=== PATIENT | female | born 1940 | race Caucasian/White ===

== ENCOUNTER → 2023-07-13 10:50 | Outpatient (REF) | payer MEDICARE, OTHER, SELFPAY | LOC: HWRAD 10:50 | PROVIDERS: ATTENDING PHYSICIAN Family Medicine | DX: R19.7 Diarrhea, unspecified (principal); R11.0 Nausea; R63.4 Abnormal weight loss; R10.9 Unspecified abdominal pain | CPT/HCPCS: 74177; Q9967 ==

== ENCOUNTER → 2023-07-26 11:18 | Outpatient (REF) | payer MEDICARE, OTHER, SELFPAY | LOC: HWRAD 11:18 | PROVIDERS: ATTENDING PHYSICIAN Internal Medicine Rheumatology; FAMILY PHYSICIAN Family Medicine; REFERRING PHYSICIAN Internal Medicine Rheumatology | DX: M81.0 Age-related osteoporosis without current pathological fracture (principal); M54.50 Low back pain, unspecified | CPT/HCPCS: 72110; 77080 ==

== ENCOUNTER → 2023-12-21 09:38 | Outpatient (REF) | payer MEDICARE, OTHER, SELFPAY ==
[2023-12-21 12:17] LABS: % Basophils 0.8 % (0-2); % Eosinophils 4.2 % (0-6); % Immature Granulocytes 0.2 % (0-0.5); % Lymphocytes 31.7 % (20.5-51.1); % Monocytes 6.8 % (1.7-9.3); % Neutrophils 56.3 % (42.2-75.2); Absolute Basophils 0.1 10^3/uL (0-0.2); Absolute Eosinophils 0.4 10^3/uL (0-0.7); Absolute Lymphocytes 2.7 10^3/uL (1.2-3.4); Absolute Monocytes 0.6 10^3/uL (0.1-0.6); Absolute Neutrophils 4.9 10^3/uL (1.4-6.5); Hematocrit 36.7 % (37.0-47.0); Hemoglobin 12.3 g/dL (12.0-16.0); Mean Corp Hgb Conc. 33.5 g/dL (33.0-37.0); Mean Corpuscular Hgb 32.4 pg (27.0-31.0); Mean Corpuscular Volume 96.6 fL (81.0-99.0); Mean Platelet Volume 10.6 fL (7.4-10.4); Nucleated Red Blood Cells % 0 %; Platelet Count 350 10^3/uL (130-400); White Blood Cell Count 8.6 10^3/uL (4.8-10.8)
[2023-12-21 13:21] LABS: Erythrocyte Sed Rate 45 mm/hour (0-20)
[2023-12-21 14:15] LABS: C-Reactive Protein < 5.00 mg/L (0.0-10.00)
[2023-12-21 14:46] LABS: TSH Reflex To Free T4 4.76 uIU/ml (0.47-4.68)
[2023-12-21 14:50] LABS: ALT (SGPT) 19 U/L (0-35); AST (SGOT) 33 U/L (14-36); Albumin 4.2 g/dl (3.5-5.0); Alkaline Phosphatase 75 U/L (38-126); Blood Urea Nitrogen 17 mg/dl (7-17); Calcium 9.2 mg/dl (8.4-10.2); Carbon Dioxide 26 mmol/L (22-30); Chloride 106 mmol/L (98-107); Glucose 106 mg/dl (70-99); Sodium 140 mmol/L (135-145); Total Bilirubin 0.5 mg/dl (0.2-1.3); Total Protein 7.3 g/dl (6.3-8.2); eGFR > 60.00
[2023-12-21 15:16] LABS: Free T4 1.02 ng/dl (0.78-2.19)
[2023-12-22 12:28] LABS: tTG IgA Antibody 11.6 EU/ml (0-19); tTG IgG Antibody 29.3 EU/ml (0-19)
[2023-12-23 00:11] LABS: IgA 306 mg/dl (70-400)
== END ==
LOC: HWLAB 09:38
PROVIDERS: ATTENDING PHYSICIAN Internal Medicine Rheumatology; FAMILY PHYSICIAN Family Medicine; REFERRING PHYSICIAN Internal Medicine Gastroenterology
DX: L29.9 Pruritus, unspecified (principal); M06.89 Other specified rheumatoid arthritis, multiple sites; M17.12 Unilateral primary osteoarthritis, left knee; M81.0 Age-related osteoporosis without current pathological fracture; Z51.81 Encounter for therapeutic drug level monitoring; R19.7 Diarrhea, unspecified; R10.12 Left upper quadrant pain
CPT/HCPCS: 36415; 80053; 82784; 83516; 84439; 84443; 85025; 85652; 86140

== ENCOUNTER → 2023-12-22 15:34 | Outpatient (REF) | payer MEDICARE, OTHER, SELFPAY ==
[2023-12-25 16:34] LABS: Calprotectin, Fecal 473 ug/g (<=49)
== END ==
LOC: REG 15:34
PROVIDERS: ATTENDING PHYSICIAN Internal Medicine Gastroenterology; FAMILY PHYSICIAN Family Medicine
DX: R19.7 Diarrhea, unspecified (principal); R10.12 Left upper quadrant pain
CPT/HCPCS: 83013; 83993; 87328; 87329

== ENCOUNTER → 2024-01-05 06:29 | Day surgery (SDC) | payer MEDICARE, OTHER, SELFPAY | LOC: GI 06:29 | PROVIDERS: ATTENDING PHYSICIAN Internal Medicine Gastroenterology | DX: R10.84 Generalized abdominal pain (principal); R63.4 Abnormal weight loss; K22.2 Esophageal obstruction; K44.9 Diaphragmatic hernia without obstruction or gangrene; K31.7 Polyp of stomach and duodenum; K31.89 Other diseases of stomach and duodenum | CPT/HCPCS: 43239; 88305; 88342 ==

== ENCOUNTER → 2024-01-25 12:33 | Outpatient (REF) | payer MEDICARE, OTHER, SELFPAY ==
[2024-01-25 15:57] LABS: % Basophils 0.8 % (0-2); % Eosinophils 3.1 % (0-6); % Immature Granulocytes 0.3 % (0-0.5); % Lymphocytes 31.6 % (20.5-51.1); % Monocytes 8.3 % (1.7-9.3); % Neutrophils 55.9 % (42.2-75.2); Absolute Basophils 0.1 10^3/uL (0-0.2); Absolute Eosinophils 0.3 10^3/uL (0-0.7); Absolute Lymphocytes 2.5 10^3/uL (1.2-3.4); Absolute Monocytes 0.7 10^3/uL (0.1-0.6); Absolute Neutrophils 4.5 10^3/uL (1.4-6.5); Hematocrit 35.8 % (37.0-47.0); Hemoglobin 11.8 g/dL (12.0-16.0); Mean Corpuscular Hgb 30.7 pg (27.0-31.0); Mean Corpuscular Volume 93.2 fL (81.0-99.0); Mean Platelet Volume 10.3 fL (7.4-10.4); Nucleated Red Blood Cells % 0 %; Platelet Count 354 10^3/uL (130-400); Red Blood Cell Count 3.84 10^6/uL (4.20-5.40); Red Cell Dist. Width 13.6 % (11.5-14.5)
[2024-01-25 16:00] LABS: ALT (SGPT) 16 U/L (0-35); AST (SGOT) 28 U/L (14-36); Alkaline Phosphatase 66 U/L (38-126); Blood Urea Nitrogen 23 mg/dl (7-17); Calcium 9.4 mg/dl (8.4-10.2); Carbon Dioxide 23 mmol/L (22-30); Chloride 108 mmol/L (98-107); Glucose 115 mg/dl (70-99); Sodium 145 mmol/L (135-145); Total Bilirubin 0.3 mg/dl (0.2-1.3); Total Protein 7.1 g/dl (6.3-8.2); eGFR > 60.00
[2024-01-25 16:29] LABS: TSH Reflex To Free T4 3.87 uIU/ml (0.47-4.68)
== END ==
LOC: HWLAB 12:33
PROVIDERS: ATTENDING PHYSICIAN Family Medicine
DX: F41.1 Generalized anxiety disorder (principal); I10 Essential (primary) hypertension; E78.5 Hyperlipidemia, unspecified
CPT/HCPCS: 36415; 80053; 84443; 85025

== ENCOUNTER 2024-04-13 16:20 | Emergency (ER) | payer MEDICARE, OTHER, SELFPAY ==
[2024-04-13 16:22] VITALS: BP 162/91
--- NOTE | 2024-04-13 17:13 | ED.GENMED ---
History of Present Illness
General
Chief Complaint: Musculo-Skeletal Complaint
Source: patient
Exam Limitations: none
Time Seen by Provider: 04/13/24 16:25
Nursing documentation reviewed up to this point in time: agreed with
History of Present Illness
History of Present Illness:
Hit leg on door. Sustained skin tear to LLE. Injury occurred just [employer]
Past History
Past History
ED Past Medical History: Arrthythmia (Atrial tachycardia), HTN, Hypercholesterolemia and Other (RA, fibromyalgia, chronic sinusitis)
ED Past Surgical History: Cholecystectomy, Gynecological and Orthopedic
Patient has exhibited threatening behavior?: No
PSI?: No
Social History
Tobacco: Non-smoker
Personal:
Review of Systems
Review of Systems
Allergies reviewed?: Yes
All Other Systems: ROS reviewed and negative except as documented in HPI and ROS
Constitutional: Reports no symptoms
Musculoskeletal: Reports no symptoms
Skin: Reports other (Large skin tear LLE)
Neurological: Reports no symptoms
Psychiatric: Reports no symptoms
Phy Exam
General Physical Exam
General Presentation: well appearing and no apparent distress
General age: appears stated age
General Skin: warm and dry
General Habitus: normal
General Mental: alert
Musculoskeletal Exam
Musculoskeletal Exam: full ROM and neuro vasc intact
Skin Exam
Skin Exam: normal color, warm/dry and no rash
Psychiatric Exam
Psychiatric Exam: normal mood/affect
Course
Vital Signs
Initial and Last Documented VS:
Initial Vital Signs
Temp Pulse Resp BP Pulse Ox
98.2 F 88 16 162/91 98
04/13/24 16:22 04/13/24 16:22 04/13/24 16:22 04/13/24 16:22 04/13/24 16:22
Last Documented Vital Signs
Temp Pulse Resp BP Pulse Ox
98.2 F 88 16 162/91 98
04/13/24 16:22 04/13/24 16:22 04/13/24 16:22 04/13/24 16:22 04/13/24 16:22
Procedures
Laceration Closure
Left Lower Anterior Leg:
Status of Wound: clean
Description of Wound Edges: sharp
Preparation: cleaned with saline and cleaned with Betadine
Anesthesia: 1% Lidocaine with epi
Revision/Debridement: routine- no revision
Wound exploration: explored to base- no FB
Type of Closure: single layer closure
Skin Closure Material: 4-0 prolene
*Critical Care Note
Total Time (30-74mins, 75-104mins- exclusive of procedures): Not Applicable
ED Attending Note
-
Portions of this chart may have been created with voice recognition software.� Occasional wrong word or��sound alike� substitutions may have occurred due to the inherent limitations of voice recognition software.
Discharge Plan
Departure
Patient Disposition: Home (Routine Discharge)
Date of Disposition: 04/13/24
Time of Disposition: 17:05
Patient with high blood pressure during this ER visit?: No
Condition: Good
Covid-19: Not Applicable
Discharge Problem:
Skin tear of lower leg without complication
Instructions: Laceration Repair With Stitches ED
Prescriptions:
New
amoxicillin 500 mg capsule
500 mg PO BID Qty: 14 0RF
No Action
multivitamin 1 EACH tablet
1 ea PO DAILY
infliximab [Remicade] 100 MG/10 ML recon soln
1 unit IV Q4W
cholestyramine (with sugar) 4 GM powder in packet
4 gm PO DAILY PRN (Reason: diarrhea)
Eliquis 5 MG tablet
5 mg PO BID Qty: 60 5RF
pantoprazole 20 mg tablet,delayed release (DR/EC)
20 mg PO DAILY
calcium polycarbophil [FiberCon] 625 mg Tablet
1,250 mg PO DAILY
Prevagan
1 cap PO DAILY
simvastatin [Zocor] 20 mg tablet
20 mg PO HS Qty: 30 0RF
clonazepam 0.5 MG tablet
0.5 mg PO BID Qty: 2 0RF
dofetilide 250 mcg Capsule
250 mcg PO Q12 Qty: 60 2RF
diltiazem HCl 240 mg Capsule,Extended Release 24hr
240 mg PO DAILY Qty: 30 0RF
metoprolol succinate 25 mg Tablet Extended Release 24 Hr
25 mg PO Q12H Qty: 60 0RF
losartan 50 mg tablet
50 mg PO DAILY Qty: 30 0RF
Referrals:
Sonu Boswell MD [Family Provider] - (Sutures can be removed in 7-10 days)
Interventions
Interventions:
*Risk Screen - Suicide Last Done: 04/13/24 16:22
*Neglect/Abuse Screening Last Done: 04/13/24 16:22
Discharge Date and Time
Print Language: CZECH
Skin Exam
Laceration
Left Lower Anterior Leg:
Length in cm: 6
Orientation: vertical
Type of Laceration: simple
Any active bleeding?: no active bleeding
Distal skin color and temperature: normal-warm & good color
Normal distal neurovascular exam: Yes
Range of motion: full
== END 2024-04-13 17:40 | disposition home or self-care (01) ==
LOC: EMR 16:20
PROVIDERS: EMERGENCY PHYSICIAN Emergency Medicine; FAMILY PHYSICIAN Family Medicine
DX: S81.819A Laceration without foreign body, unspecified lower leg, initial encounter (principal); W22.09XA Striking against other stationary object, initial encounter; I10 Essential (primary) hypertension
CPT/HCPCS: 99282; 12002

== ENCOUNTER 2024-04-18 17:15 | Emergency (ER) | payer MEDICARE, OTHER, SELFPAY ==
[2024-04-18 17:17] VITALS: BP 161/81
[2024-04-18 17:36] LABS: % Basophils 0.4 % (0-2); % Eosinophils 0.8 % (0-6); % Immature Granulocytes 0.3 % (0-0.5); % Lymphocytes 25.3 % (20.5-51.1); % Monocytes 7.7 % (1.7-9.3); % Neutrophils 65.5 % (42.2-75.2); Absolute Basophils 0.1 10^3/uL (0-0.2); Absolute Eosinophils 0.1 10^3/uL (0-0.7); Absolute Monocytes 0.9 10^3/uL (0.1-0.6); Absolute Neutrophils 7.7 10^3/uL (1.4-6.5); Hematocrit 35.9 % (37.0-47.0); Hemoglobin 11.8 g/dL (12.0-16.0); Mean Corp Hgb Conc. 32.9 g/dL (33.0-37.0); Mean Corpuscular Hgb 31.6 pg (27.0-31.0); Mean Platelet Volume 9.4 fL (7.4-10.4); Nucleated Red Blood Cells % 0 %; Platelet Count 373 10^3/uL (130-400); Red Blood Cell Count 3.74 10^6/uL (4.20-5.40); Red Cell Dist. Width 14.7 % (11.5-14.5); White Blood Cell Count 11.7 10^3/uL (4.8-10.8)
[2024-04-18 17:52] LABS: ALT (SGPT) 17 U/L (0-35); AST (SGOT) 25 U/L (14-36); Alkaline Phosphatase 78 U/L (38-126); Blood Urea Nitrogen 27 mg/dl (7-17); Carbon Dioxide 28 mmol/L (22-30); Chloride 104 mmol/L (98-107); Glucose 125 mg/dl (70-99); Potassium 3.8 mmol/L (3.5-5.1); Sodium 143 mmol/L (135-145); Total Bilirubin 0.8 mg/dl (0.2-1.3); Total Protein 7.2 g/dl (6.3-8.2); eGFR > 60.00
--- NOTE | 2024-04-18 21:03 | ED.GENMED ---
History of Present Illness
General
Chief Complaint: Musculo-Skeletal Complaint
Source: patient
Exam Limitations: none
Time Seen by Provider: 04/18/24 19:56
Nursing documentation reviewed up to this point in time: agreed with
History of Present Illness
History of Present Illness:
Patient is an 84-year-old female who presents to the ER complaint of left lower leg pain. Patient reports on 5 days ago she hit her lower leg on a storm door and had a laceration. She came here had sutures placed but since then has had
increasing pain and bruising and swelling. She has pain with ambulation. She is on Eliquis for A-fib and therefore has been only taking Tylenol.
She was concerned about a fracture since she did not have an x-ray at the time.
She reports he does have Steri-Strips in place and denies any yellow drainage or drainage from the incision. Denies any fever chills
Past History
Past History
ED Past Medical History: Arrthythmia (Atrial tachycardia), HTN, Hypercholesterolemia and Other (RA, fibromyalgia, chronic sinusitis)
ED Past Surgical History: Cholecystectomy, Gynecological and Orthopedic
Patient has exhibited threatening behavior?: No
PSI?: No
Social History
Tobacco: Non-smoker
Personal:
Review of Systems
Review of Systems
Allergies reviewed?: Yes
All Other Systems: ROS reviewed and negative except as documented in HPI and ROS
Constitutional: Reports no symptoms; Denies fever, fatigue or chills
Musculoskeletal: Reports other (Swelling bruising and discomfort to left lower leg)
Skin: Reports no symptoms
Neurological: Reports no symptoms
Psychiatric: Reports no symptoms
Phy Exam
General Physical Exam
General Presentation: no apparent distress
General age: appears stated age
General Skin: warm and dry
General Habitus: normal
General Mental: alert
General Hydration: appears well hydrated
Neurological Exam
Neurological Exam: alert and oriented x3
Musculoskeletal Exam
Musculoskeletal Exam: other (Left lower leg with Steri-Strips in place surrounding ecchymosis and small hematomas but no surrounding erythema or drainage strong distal pulses normal distal sensation, compartment is soft )
Skin Exam
Skin Exam: normal color and warm/dry
Psychiatric Exam
Psychiatric Exam: normal mood/affect
Course
Orders/Labs/Results
Orders:
Orders
04/18/24 17:22
CR Ankle - Left Min 3 Views Urgent
Comment:
Reason For Exam: injury
CR Leg Tibia/fibula Left 2 Vw Urgent
Comment:
Reason For Exam: injury
04/18/24 17:27
Complete Blood Count/With Diff Urgent
Comprehensive Metabolic Panel Urgent
04/18/24 21:03
Venous Doppler Lwr Ext Left [US Periph Venous LOWER Ext LT] Urgent
Comment:
Reason For Exam: pain s/p trauma on eliquis
Abnormal Lab Results
04/18/24
17:27
WBC 11.7 H 10^3/uL
(4.8-10.8)
RBC 3.74 L 10^6/uL
(4.20-5.40)
Hgb 11.8 L g/dL
(12.0-16.0)
Hct 35.9 L %
(37.0-47.0)
MCH 31.6 H pg
(27.0-31.0)
MCHC 32.9 L g/dL
(33.0-37.0)
RDW 14.7 H %
(11.5-14.5)
Absolute Neuts (auto) 7.7 H 10^3/uL
(1.4-6.5)
Absolute Monos (auto) 0.9 H 10^3/uL
(0.1-0.6)
BUN 27 H mg/dl
(7-17)
Glucose 125 H mg/dl
(70-99)
04/18/24 17:27
04/18/24 17:27
Vital Signs
Initial and Last Documented VS:
Initial Vital Signs
Temp Pulse Resp BP Pulse Ox
97.9 F 107 19 161/81 96
04/18/24 17:17 04/18/24 17:17 04/18/24 17:17 04/18/24 17:17 04/18/24 17:17
Last Documented Vital Signs
Temp Pulse Resp BP Pulse Ox
97.9 F 107 19 161/81 96
04/18/24 17:17 04/18/24 17:17 04/18/24 17:17 04/18/24 17:17 04/18/24 17:17
MDM/Problems Addressed
Differential Diagnosis Includes:
Not limited to hematoma, less likely DVT
MDM/Problems Addressed:
Patient had a traumatic injury several days ago was seen here had wound sutured but does have ecchymosis and swelling to the area with complaints of discomfort. She is on Eliquis on exam there are scattered ecchymosis no evidence infection these
are likely contusions/hematomas from trauma we will ultrasound however will plan to discharge home with elevation patient may try heat as she has been trying ice with close outpatient follow-up. No symptoms or exam consistent with compartment
syndrome.
HGB stable BUN slightly elevated will have pt increase fluids .
Will give patient gentle light Norbert wrap for during the day but instructed patient to remove at night while sleeping discussed close outpatient follow-up with family doctor next 2 days and to return if any worsening of symptoms.
Chronic conditions affecting care:
On Eliquis for A-fib
*Critical Care Note
Total Time (30-74mins, 75-104mins- exclusive of procedures): Not Applicable
ED Attending Note
-
Portions of this chart may have been created with voice recognition software.� Occasional wrong word or��sound alike� substitutions may have occurred due to the inherent limitations of voice recognition software.
Discharge Plan
Departure
Patient Disposition: Home (Routine Discharge)
Date of Disposition: 04/18/24
Time of Disposition: 22:17
Patient with high blood pressure during this ER visit?: Yes
Covid-19: Not Applicable
Discharge Problem:
Contusion, Hematoma
Instructions: Contusion (DC), Hematoma
Prescriptions:
No Action
multivitamin 1 EACH tablet
1 ea PO DAILY
infliximab [Remicade] 100 MG/10 ML recon soln
1 unit IV Q4W
cholestyramine (with sugar) 4 GM powder in packet
4 gm PO DAILY PRN (Reason: diarrhea)
Eliquis 5 MG tablet
5 mg PO BID Qty: 60 5RF
pantoprazole 20 mg tablet,delayed release (DR/EC)
20 mg PO DAILY
calcium polycarbophil [FiberCon] 625 mg Tablet
1,250 mg PO DAILY
Prevagan
1 cap PO DAILY
simvastatin [Zocor] 20 mg tablet
20 mg PO HS Qty: 30 0RF
clonazepam 0.5 MG tablet
0.5 mg PO BID Qty: 2 0RF
dofetilide 250 mcg Capsule
250 mcg PO Q12 Qty: 60 2RF
diltiazem HCl 240 mg Capsule,Extended Release 24hr
240 mg PO DAILY Qty: 30 0RF
metoprolol succinate 25 mg Tablet Extended Release 24 Hr
25 mg PO Q12H Qty: 60 0RF
losartan 50 mg tablet
50 mg PO DAILY Qty: 30 0RF
amoxicillin 500 mg capsule
500 mg PO BID Qty: 14 0RF
Referrals:
Reta Toledo MD [Family Provider] -
Activity Restrictions/Additional Instructions:
As discussed keep elevated as much as possible you may try warm moist heat to affected area.
You may wear Norbert wrap for support of the day gently wrap do not pull tightly. Do not sleep with Norbert wrap!!!
Your labs show that you are mildly dehydrated please increase fluid intake.
Follow-up with your family doctor in the next of days for reevaluation return if any worsening of symptoms of increasing pain numbness tingling toes or any further concerns.
Interventions
Interventions:
*Risk Screen - Suicide Last Done: 04/18/24 17:20
*Neglect/Abuse Screening Last Done: 04/18/24 17:20
Discharge Date and Time
Print Language: THAI
[2024-04-18] MEDS: TYLENOL 650 MG PO (22:28)
== END 2024-04-18 22:34 | disposition home or self-care (01) ==
LOC: EMR 17:15
PROVIDERS: Emergency Medicine; EMERGENCY PHYSICIAN Emergency Medicine; FAMILY PHYSICIAN Family Medicine
DX: S80.12XA Contusion of left lower leg, initial encounter (principal); X58.XXXA Exposure to other specified factors, initial encounter; M79.662 Pain in left lower leg; R22.42 Localized swelling, mass and lump, left lower limb; I48.91 Unspecified atrial fibrillation; I10 Essential (primary) hypertension; M79.7 Fibromyalgia; E78.00 Pure hypercholesterolemia, unspecified; Z79.01 Long term (current) use of anticoagulants; Z90.49 Acquired absence of other specified parts of digestive tract; M06.9 Rheumatoid arthritis, unspecified
CPT/HCPCS: 99283; 73590; 73610; 80053; 85025; 93971

== ENCOUNTER → 2024-06-29 10:08 | Outpatient (REF) | payer MEDICARE, OTHER, SELFPAY ==
[2024-06-29 12:58] LABS: % Basophils 0.9 % (0-2); % Eosinophils 1.8 % (0-6); % Immature Granulocytes 0.3 % (0-0.5); % Lymphocytes 30.5 % (20.5-51.1); % Monocytes 7.4 % (1.7-9.3); % Neutrophils 59.1 % (42.2-75.2); Absolute Basophils 0.1 10^3/uL (0-0.2); Absolute Eosinophils 0.1 10^3/uL (0-0.7); Absolute Lymphocytes 2.4 10^3/uL (1.2-3.4); Absolute Monocytes 0.6 10^3/uL (0.1-0.6); Absolute Neutrophils 4.6 10^3/uL (1.4-6.5); Hematocrit 39.4 % (37.0-47.0); Hemoglobin 12.6 g/dL (12.0-16.0); Mean Corpuscular Hgb 31.3 pg (27.0-31.0); Nucleated Red Blood Cells % 0 %; Platelet Count 358 10^3/uL (130-400); Red Blood Cell Count 4.02 10^6/uL (4.20-5.40); White Blood Cell Count 7.8 10^3/uL (4.8-10.8)
[2024-06-29 13:17] LABS: ALT (SGPT) 17 U/L (0-35); AST (SGOT) 26 U/L (14-36); Albumin 4.3 g/dl (3.5-5.0); Alkaline Phosphatase 66 U/L (38-126); Blood Urea Nitrogen 20 mg/dl (7-17); Calcium 9.3 mg/dl (8.4-10.2); Carbon Dioxide 28 mmol/L (22-30); Chloride 104 mmol/L (98-107); Glucose 98 mg/dl (70-99); HDL Cholesterol 73 mg/dl; LDL Cholesterol, Calculated 92 mg/dl; Sodium 141 mmol/L (135-145); Total Bilirubin 0.6 mg/dl (0.2-1.3); Total Cholesterol 194 mg/dl (50-199); Total Protein 7.3 g/dl (6.3-8.2); Triglyceride 147 mg/dl (10-149); Very Low Density Lipoprotein 29 mg/dl (0-30); eGFR > 60.00
[2024-06-29 15:12] LABS: C-Reactive Protein < 5.00 mg/L (0.0-10.00)
[2024-06-29 15:44] LABS: TSH Reflex To Free T4 3.24 uIU/ml (0.47-4.68)
[2024-06-29 15:47] LABS: Erythrocyte Sed Rate 38 mm/hour (0-20)
[2024-06-29 16:03] LABS: Vitamin B12 566 pg/ml (239-931)
[2024-06-30 12:45] LABS: Glycohemoglobin (HgbA1c) 5.4 % (4.0-5.6)
== END ==
LOC: HWLAB 10:08
PROVIDERS: ATTENDING PHYSICIAN Internal Medicine Rheumatology; FAMILY PHYSICIAN Family Medicine
DX: I70.0 Atherosclerosis of aorta (principal); Z79.899 Other long term (current) drug therapy; R79.9 Abnormal finding of blood chemistry, unspecified; Z01.89 Encounter for other specified special examinations
CPT/HCPCS: 36415; 80053; 80061; 82607; 83036; 84443; 85025; 85652; 86140

== ENCOUNTER 2024-06-30 12:58 | Emergency (ER) | payer MEDICARE, OTHER, SELFPAY ==
[2024-06-30 13:05] VITALS: BP 166/102
[2024-06-30 13:51] LABS: ALT (SGPT) 17 U/L (0-35); AST (SGOT) 25 U/L (14-36); Alkaline Phosphatase 67 U/L (38-126); Blood Urea Nitrogen 20 mg/dl (7-17); Calcium 9.1 mg/dl (8.4-10.2); Carbon Dioxide 28 mmol/L (22-30); Chloride 106 mmol/L (98-107); Glucose 100 mg/dl (70-99); Sodium 140 mmol/L (135-145); Total Bilirubin 0.4 mg/dl (0.2-1.3); Total Protein 7.1 g/dl (6.3-8.2); eGFR > 60.00
[2024-06-30 13:57] LABS: COVID-19 Antigen Negative (Negative)
[2024-06-30 14:00] VITALS: BP 146/75
[2024-06-30 14:07] VITALS: BMI 26.8
--- NOTE | 2024-06-30 14:54 | ED.GENMED ---
History of Present Illness
General
Chief Complaint: Dizziness
Source: patient
Exam Limitations: none
Time Seen by Provider: 06/30/24 13:39
Nursing documentation reviewed up to this point in time: agreed with
History of Present Illness
History of Present Illness:
Patient is a pleasant 84-year-old female who reports that when she woke up this morning she felt a sense of dizziness, as if the room is spinning. Patient reports that while waiting in the ED, the symptoms have gone away. Patient reports recent
nasal congestion, mild frontal headache, and a sense of fullness of her left ear. Patient reports she has had left ear issues for a long time. Patient denies lightheadedness, chest pain and shortness of breath. She denies vision changes and
states she feels well.
Past History
Past History
ED Past Medical History: Arrthythmia (Atrial tachycardia), HTN, Hypercholesterolemia and Other (RA, fibromyalgia, chronic sinusitis)
ED Past Surgical History: Cholecystectomy, Gynecological and Orthopedic
Patient has exhibited threatening behavior?: No
PSI?: No
Social History
Tobacco: Non-smoker
Alcohol: Other
Drug: None
Personal:
Living: with family
Employment: Other
Family History
Family History: Other
Review of Systems
Review of Systems
Allergies reviewed?: Yes
All Other Systems: ROS reviewed and negative except as documented in HPI and ROS
Constitutional: Reports no symptoms
EENT: Reports other (Nasal congestion, left ear feels stuffed and sometimes 'hears crackles from left ear')
Respiratory: Reports no symptoms
Cardiac: Reports no symptoms
ABD/GI: Reports no symptoms
: Reports no symptoms
Musculoskeletal: Reports no symptoms
Skin: Reports no symptoms
Neurological: Reports dizzy
Endocrine: Reports no symptoms
Hematologic/Lymphatic: Reports no symptoms
Psychiatric: Reports no symptoms
Phy Exam
Physical Exam
Physical Exam:
Physical Exam
General: no apparent distress, not acutely ill. Well appearing, conversational and smiling
Neck: supple. no meningeal signs. normal psoterior pharynx. Large amount of wax left ear
Heart: s1/s2 regular rate and rhythm, no murmur. equal radial pulses.
Lungs: no acute respiratory distress. clear bilaterally
Abdomen: normal bowel sounds. not tender. no CVAT
Neuro: alert and oriented. no focal neurological deficits. Steady gait. Normal [id number]. Extraocular muscles intact. Visual [place] intact
Skin: no rash
Psychiatric: well kept. interactive and cooperative
Extremities: no edema. no calf tenderness. negative homans. good distal pulses
Course
Orders/Labs/Results
Orders:
Orders
06/30/24 13:04
Electrocardiogram (*1) Urgent
Reason for Study: Vertigo / Dizzy
EKG- Treatment ONCE
06/30/24 13:19
Complete Blood Count/With Diff Urgent
Comprehensive Metabolic Panel Urgent
06/30/24 13:20
COVID-19 Antigen Urgent
Source: Nasal Swab
Influenza A+B Rapid Molecular Urgent
VIRIDIANA Source: Nasal Swab
Specimen Description:
Abnormal Lab Results
06/30/24
13:19
BUN 20 H mg/dl
(7-17)
Glucose 100 H mg/dl
(70-99)
06/30/24 13:19
Vital Signs
Initial and Last Documented VS:
Initial Vital Signs
Temp Pulse Resp BP Pulse Ox
98.6 F 84 16 166/102 97
06/30/24 13:05 06/30/24 13:05 06/30/24 13:05 06/30/24 13:05 06/30/24 13:05
Last Documented Vital Signs
Temp Pulse Resp BP Pulse Ox
98.6 F 70 17 146/75 96
06/30/24 13:05 06/30/24 14:00 06/30/24 14:00 06/30/24 14:00 06/30/24 13:45
MDM/Problems Addressed
Differential Diagnosis Includes:
Acute positional vertigo, acute dehydration, cardiac arrhythmia
MDM/Problems Addressed:
Patient presents with acute vertigo which is now gone
Chronic conditions affecting care: HTN
Acute Exacerbation and/or Progression of Chronic Illness:
Patient is acutely hypertensive, however, on rechecking her blood pressure is improved
Acute Exacerbation and/or Progression of Chronic Illness: HTN
*Pulse Oximetry
Patient hypoxic: no
*EKG
Interpreted by ED Provider?: Yes
Interpretation: abnormal
Comparison EKG: changes noted
Rate: normal
Rhythm: other (Atrial paced)
Lagrange: normal axis
Interval: normal interval
QRS Pattern: normal QRS
Ischemia: no ischemia
*Knowledge Management Advisor Interpretation
Rate: normal
Interpretation: normal
Rhythm: other
*Critical Care Note
Total Time (30-74mins, 75-104mins- exclusive of procedures): Not Applicable
Data Reviewed
Review of Other/Old Records Reveals: Testing (Normal-appearing cardiac echo 2022)
Source: patient
Further Testing Considered But Not Given:
Consider doing a CAT scan of the head, however, given patient symptoms are completely gone and she is a normal neurological exam, I do not feel the CT is warranted. I am not suspicious for stroke.
ED Attending Note
-
Portions of this chart may have been created with voice recognition software.� Occasional wrong word or��sound alike� substitutions may have occurred due to the inherent limitations of voice recognition software.
Discharge Plan
Departure
Patient Disposition: Home (Routine Discharge)
Date of Disposition: 06/30/24
Time of Disposition: 14:48
Patient with high blood pressure during this ER visit?: Yes
Condition: Good
Covid-19: Not Applicable
Discharge Problem:
Vertigo, Excessive wax in left ear
Instructions: Vertigo (a type of dizziness), Carbamide Peroxide, Ear Wax Impaction ED, BLOOD PRESSURE
Prescriptions:
No Action
multivitamin 1 EACH tablet
1 ea PO DAILY
infliximab [Remicade] 100 MG/10 ML recon soln
1 unit IV Q4W
cholestyramine (with sugar) 4 GM powder in packet
4 gm PO DAILY PRN (Reason: diarrhea)
Eliquis 5 MG tablet
5 mg PO BID Qty: 60 5RF
pantoprazole 20 mg tablet,delayed release (DR/EC)
20 mg PO DAILY
calcium polycarbophil [FiberCon] 625 mg Tablet
1,250 mg PO DAILY
Prevagan
1 cap PO DAILY
simvastatin [Zocor] 20 mg tablet
20 mg PO HS Qty: 30 0RF
clonazepam 0.5 MG tablet
0.5 mg PO BID Qty: 2 0RF
dofetilide 250 mcg Capsule
250 mcg PO Q12 Qty: 60 2RF
diltiazem HCl 240 mg Capsule,Extended Release 24hr
240 mg PO DAILY Qty: 30 0RF
metoprolol succinate 25 mg Tablet Extended Release 24 Hr
25 mg PO Q12H Qty: 60 0RF
losartan 50 mg tablet
50 mg PO DAILY Qty: 30 0RF
amoxicillin 500 mg capsule
500 mg PO BID Qty: 14 0RF
Referrals:
Sakshi Hunter MD [Family Provider] -
Kaylee Green MD [Active] - (Call for next open appointment)
Activity Restrictions/Additional Instructions:
Please buy an ear drop medication for ear wax called Debrox. It is sold [id number]. Apply 5 to 10 drops of Debrox into your left ear twice a day for 4 days. After applying the eardrops, put a cotton ball in the left ear.
Please also use Afrin nasal spray for any congestion. This is also sold [id number]
Interventions
Interventions:
*Risk Screen - Suicide Last Done: 06/30/24 13:05
*General Assessment Last Done: 06/30/24 13:05
*Neglect/Abuse Screening Last Done: 06/30/24 13:05
ED- Fall Risk Assessment Last Done: 06/30/24 14:12
*ED COVID-19 Vaccine History Last Done: 06/30/24 14:07
ED- Neurological Assessment Last Done: 06/30/24 14:11
ED- Cardiac Assessment Last Done: 06/30/24 14:12
Discharge Date and Time
Print Language: CITIZ[place]
== END 2024-06-30 14:59 | disposition home or self-care (01) ==
LOC: EMR 12:58
PROVIDERS: EMERGENCY PHYSICIAN Emergency Medicine; FAMILY PHYSICIAN Family Medicine
DX: R42 Dizziness and giddiness (principal); H61.22 Impacted cerumen, left ear; I10 Essential (primary) hypertension; E78.00 Pure hypercholesterolemia, unspecified; Z90.49 Acquired absence of other specified parts of digestive tract
CPT/HCPCS: 99284; 80053; 87502; 87811; 93005

== ENCOUNTER → 2024-07-03 07:48 | Outpatient (REF) | payer MEDICARE, OTHER, SELFPAY | LOC: RAD 07:48 | PROVIDERS: ATTENDING PHYSICIAN Internal Medicine Gastroenterology; FAMILY PHYSICIAN Family Medicine | DX: R11.0 Nausea (principal) | CPT/HCPCS: 78264; A9541 ==

== ENCOUNTER → 2024-08-14 14:03 | Outpatient (REF) | payer MEDICARE, OTHER, SELFPAY | LOC: HWRAD 14:03 | PROVIDERS: ATTENDING PHYSICIAN Otolaryngology; FAMILY PHYSICIAN Family Medicine | DX: R42 Dizziness and giddiness (principal); R51.9 Headache, unspecified | CPT/HCPCS: 70450 ==

== ENCOUNTER → 2024-08-24 12:08 | Outpatient (REF) | payer MEDICARE, OTHER, SELFPAY ==
[2024-08-24 15:39] LABS: % Basophils 0.8 % (0-2); % Eosinophils 2.5 % (0-6); % Immature Granulocytes 0.5 % (0-0.5); % Lymphocytes 30.1 % (20.5-51.1); % Monocytes 7.6 % (1.7-9.3); % Neutrophils 58.5 % (42.2-75.2); Absolute Basophils 0.1 10^3/uL (0-0.2); Absolute Eosinophils 0.2 10^3/uL (0-0.7); Absolute Lymphocytes 2.6 10^3/uL (1.2-3.4); Absolute Monocytes 0.7 10^3/uL (0.1-0.6); Hematocrit 37.6 % (37.0-47.0); Hemoglobin 12.3 g/dL (12.0-16.0); Mean Corp Hgb Conc. 32.7 g/dL (33.0-37.0); Mean Corpuscular Hgb 31.1 pg (27.0-31.0); Mean Corpuscular Volume 94.9 fL (81.0-99.0); Mean Platelet Volume 9.4 fL (7.4-10.4); Nucleated Red Blood Cells % 0 %; Platelet Count 336 10^3/uL (130-400); Red Blood Cell Count 3.96 10^6/uL (4.20-5.40); Red Cell Dist. Width 14.7 % (11.5-14.5); White Blood Cell Count 8.6 10^3/uL (4.8-10.8)
[2024-08-24 15:46] LABS: ALT (SGPT) 35 U/L (0-35); AST (SGOT) 43 U/L (14-36); Albumin 4.3 g/dl (3.5-5.0); Alkaline Phosphatase 74 U/L (38-126); Blood Urea Nitrogen 23 mg/dl (7-17); Calcium 9.5 mg/dl (8.4-10.2); Carbon Dioxide 27 mmol/L (22-30); Chloride 106 mmol/L (98-107); Glucose 95 mg/dl (70-99); Potassium 4.1 mmol/L (3.5-5.1); Sodium 141 mmol/L (135-145); Total Bilirubin 0.5 mg/dl (0.2-1.3); Total Protein 7.4 g/dl (6.3-8.2); eGFR > 60.00
[2024-08-24 15:50] LABS: C-Reactive Protein < 5.00 mg/L (0.0-10.00)
[2024-08-24 16:02] LABS: Erythrocyte Sed Rate 40 mm/hour (0-20)
[2024-08-24 16:07] LABS: Vitamin D, 25-OH*** 25.9 ng/mL (30-80)
[2024-08-27 08:12] LABS: ANA, IgG Reflex to HEp-2 None Detected (None Detected)
== END ==
LOC: HWLAB 12:08
PROVIDERS: ATTENDING PHYSICIAN Internal Medicine Rheumatology; FAMILY PHYSICIAN Family Medicine; REFERRING PHYSICIAN Internal Medicine Gastroenterology
DX: E55.9 Vitamin D deficiency, unspecified (principal); L29.9 Pruritus, unspecified; M06.89 Other specified rheumatoid arthritis, multiple sites; M17.12 Unilateral primary osteoarthritis, left knee; M81.0 Age-related osteoporosis without current pathological fracture; Z51.81 Encounter for therapeutic drug level monitoring; K31.84 Gastroparesis; R19.7 Diarrhea, unspecified
CPT/HCPCS: 36415; 80053; 82306; 83516; 83993; 85025; 85652; 86038; 86140; 86235

== ENCOUNTER → 2024-09-26 08:55 | Outpatient (REF) | payer MEDICARE, OTHER, SELFPAY ==
[2024-09-26 13:56] LABS: Blood Urea Nitrogen 25 mg/dl (7-17); Calcium 9.2 mg/dl (8.4-10.2); Carbon Dioxide 25 mmol/L (22-30); Chloride 112 mmol/L (98-107); Glucose 105 mg/dl (70-99); Potassium 3.9 mmol/L (3.5-5.1); Sodium 145 mmol/L (135-145); eGFR > 60.00
[2024-09-26 14:14] LABS: NT-proBNP 150 pg/ml
== END ==
LOC: HWRCS 08:55
PROVIDERS: ATTENDING PHYSICIAN Physician Assistant Medical; FAMILY PHYSICIAN Family Medicine
DX: R60.0 Localized edema (principal)
CPT/HCPCS: 36415; 80048; 83880; 93306

== ENCOUNTER 2024-12-28 06:18 | Day surgery (SDC) | payer MEDICARE, OTHER, SELFPAY | END 2024-12-28 13:33 | disposition home or self-care (01) | LOC: GI 06:18 | PROVIDERS: ATTENDING PHYSICIAN Internal Medicine Gastroenterology | DX: K64.9 Unspecified hemorrhoids (principal); R19.5 Other fecal abnormalities; K57.30 Diverticulosis of large intestine without perforation or abscess without bleeding; D12.2 Benign neoplasm of ascending colon | CPT/HCPCS: 45380; 88305 ==